=== PATIENT | male | born 1970 | race Caucasian/White ===

== ENCOUNTER → 2021-02-09 16:32 | Outpatient (CLI) | payer BC, SELFPAY ==
--- NOTE | ~2021-02-09 | XR_ITS ---
XR chest 2V DATE: 02/09/2021 16:51 INDICATION: Shortness of breath. No fever. TECHNIQUE: Upright 2 view examination COMPARISON: 07/08/2007 2 view chest FINDINGS: There is cardiomegaly, pulmonary vascular congestion and redistribution, prominence of the minor and greater fissures as well as some Leda B-lines, consistent with congestive heart failure a nd pulmonary interstitial and subpleural edema. No pulmonary consolidation. No pleural effusion. No pneumothorax. Included skeletal structures are unremarkable. IMPRESSION: Congestive heart failure with pulmonary interstitial and subpleural edema Reviewed, dictated and finalized at location A.
== END ==
PROVIDERS: PCP Family Medicine; Visit Provider Family Medicine
DX: R06.02 Shortness of breath (principal)
CPT/HCPCS: 71046

== ENCOUNTER 2022-07-06 15:48 | Emergency (ER) | payer BC, SELFPAY ==
[2022-07-06 16:04] VITALS: BP 114/84; PULSE 108; RESP 17; TEMP 38.8; O2SAT 97
[2022-07-06 16:49] LABS: Influenza A QL RT-PCR Positive (Negative); Influenza B QL RT-PCR Negative (Negative); RSV RNA, RT-PCR Negative (Negative); SARS-CoV-2 RNA PCR Negative
--- NOTE | 2022-07-06 18:13 | PC.NURSE ---
Pt to desk stating he wants to leave. Pt A&Ox4. Encouraged to return if symptoms do not improve.
== END 2022-07-06 18:13 | disposition left against medical advice (07) ==
PROVIDERS: Emergency Provider Emergency Medicine; PCP Family Medicine
DX: R50.9 Fever, unspecified (principal)
CPT/HCPCS: 87637; 99199

== ENCOUNTER 2025-03-31 13:20 | Outpatient (CLI) | payer BC, SELFPAY ==
--- OUTSIDE RECORDS SUMMARY | 2010-04-16 03:15 | XMS_ITS | Continuity of Care Document ---
Author Organization [facility] Address [address] [facility] [address] [place] [address] Phone Care Team Providers Care Freight Loader Name Role Phone Bledsoe OD, Jerry Unavailable Unavailable Procedures Procedure Date Office/outpatient Visit, Est Office/outpatient Visit, Est Advance Directives Directive Yes / No Effective Date File Name No Information Encounters Encounter Description Practice Location Reason(s) For Visit Diagnoses Date Provider Providers Copied on Encounter Office/outpat ient Visit, [facility] [place], [address] [place] [address] [address], [place], [place], [id number], tel:[phone] [facility] No Information Sep-1 0-201 0 Bledsoe OD Jerry. [address] , [address], [place], [place], [facility], [place]. tel:[phone] Office/outpat ient Visit, [facility] [place], [address] [place] [address] [address], [place], [place], [id number], tel:[phone] [facility] No Information Sep-0 8-201 0 Doisy Edward. [address], [address], [place], [place], [facility], . tel:[phone] Family History Family Member Type Diagnosis Age At Onset No Information Payers Payer name Insurance type Covered alliance party ID Authoriza tion(s) No Information Social History Type Description Quantity Date Captured Comments Sex Male Smoking Status No Information Chief Complaint And Reason For Visit No Information Reason For Referral Reason For Referral No Information History Of Present Illness Encounter Date Complaint History Of Prese nt Illness No Information Functional Status Date Functional Assessmen t No Information Instructions Date Instruction Additional Infor mation No Information Assessments Type Assessment Date No Information Patient Care Teams Name Effective Dates (start - stop) Status Members No Information
--- NOTE | ~2025-03-31 | XR_ITS ---
EXAMINATION: XR fl inj hip RT for MR/CT DATE: 03/31/2025 14:22 INDICATION: Right hip/groin and right lower quadrant pain TECHNIQUE: A time-out was performed to verify the patient's name, date of , and procedure to be performed. The procedure including the risks, benefits, and alternatives was discussed with the patient. Risks discussed included bleeding and infection. The patient understood the risks and agreed to proceed. The skin overlying the right hip joint was prepped and draped in usual sterile fashion. Anesthetic was administered with 1% lidocaine subcutaneously. A 22 G needle was advanced under fluoroscopic guidance into the joint. Injection of 1 mL of Omnipaque 240 confirmed intra-articular position of the needle. Subsequently, injectate consisting of . 12 mL of 2:1:1 mixture of sterile saline:Omnipaque 240:1% lidocaine mixed 200:1 with 529 mg/mL Multihance gadolinium contrast was instilled with intra-articular administration confirmed with intermittent fluoroscopy. The needle was removed and the entry site was cleaned and dressed. There were no immediate complications. Fluoroscopy exposure time was 0.2 minutes. The total number of images was 7. Total DAP was 0.814 Gycm^2. FINDINGS: Real-time fluoroscopy demonstrates the needle and contrast in the right hip joint. IMPRESSION: 1. Successful right hip joint injection of a dilute gadolinium contrast mixture for subsequent MRI arthrogram which will be dictated separately. Reviewed, dictated and finalized at location A.
--- NOTE | ~2025-03-31 | MR_ITS ---
EXAMINATION: MR hip RT w con DATE: 03/31/2025 14:59 INDICATION: Right leg injury. Right lower quadrant pain. TECHNIQUE: Magnetic resonance (MR) arthrogram of the right hip was performed following intra-articular gadolinium contrast injection and without intravenous contrast. Details of the hip joint injection have been dictated separately. Sequences included small field of view of the right hip with axial and sagittal T1-weighted FS SE and T2-weighted FS FSE and coronal T1-weighted SE and T2- weighted FS FSE. Additional T1-weighted FGRE images in a radial pattern oriented orthogonal to the acetabular rim were obtained for evaluation of the labrum. COMPARISON: None. FINDINGS: Bones/labrum/cartilage: 15 degrees lumbar levoscoliosis. Severe spondylosis with severe right-sided disc height loss with associated fibrofatty degenerative endplate changes. Moderate osteoarthritis at the right hip with scattered deep chondral ulceration with prominent at the superolateral right acetabulum and at the superomedial aspect of the femoral head where there is some underlying mild subarticular edema-like signal change. There is also prominent degeneration of the anterior to posterior superior right acetabular labrum which appears thickened with amorphous increased signal.. No fracture, avascular necrosis or pathologic marrow replacing process. There is suggestion of mild osteoarthritis at the contralateral left hip on the large [id number] images with subarticular cystlike change at the superolateral rim of the left acetabulum. Fluid: Physiologic amount fluid at the left hip. Contrast fills the right hip joint space with mild synovitis. No loose osteochondral bodies. Small left and moderate-sized right hydroceles in the scrotum. No free fluid in the pelvis, bursitis about the greater trochanters or other abnormal fluid collections. Soft tissues: Normal and symmetric muscle bulk and signal in the pelvis and visualized proximal thighs. The bilateral iliopsoas, gluteal and proximal hamstring tendons are normal. Prostatomegaly measuring 4.4 x 3.5 cm. Limited evaluation of visceral organs of the pelvis is unremarkable. No pathologically enlarged p elvic/inguinal lymphadenopathy. IMPRESSION: 1. Moderate right hip osteoarthritis with diffuse degeneration of the right acetabular labrum. 2. 15 degrees lumbar levoscoliosis with severe spondylosis at L4-L5. 3. Prostatomegaly. 4. Small left and moderate-sized right hydroceles. Reviewed, dictated and finalized at location A. IMPRESSION: 1. Moderate right hip osteoarthritis with diffuse degeneration of the right clay tabular labrum. 2. 15 degrees lumbar levoscoliosis with severe spondylosis at L4-L5. 3. Prostatomegaly. 4. Small left and moderate-sized right hydroceles.
--- OUTSIDE RECORDS SUMMARY | 2025-03-31 13:29 | XMS_ITS | Clinical Summary ---
Author Organization [facility] Address [address] [place] [address] Care Team Providers Care Provider Education Specialist Name Role Phone Joseluis Bhatti MD Primary Care Provider [phone] Allergies No known active allergies Medications carvediloL (COREG) 6.25 mg tablet Take 6.25 mg by mouth 2 (two) times a day 02/11/2021 Active furosemide (LASIX) 20 mg tablet Take 20 mg by mouth daily 02/17/2021 Active sacubitriL-valsa rtan (ENTRESTO) 49-51 mg tabletIndication s:chronic heart failure Take 1 tablet by mouth 2 (two) times a day 60 tablet 11 02/24/2021 Active Active Problems Problem Noted Date Diagnosed Date 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 Surgical History Surgery Date Site/Laterality Comments ANKLE SURGERY SHOULDER SURGERY Medical History Medical History Date Comments Cardiomyopathy Family History Medical History Relation Name Comments Heart disease Father Hyperlipidemia Father Hypertension Father Relation Name Status Comments Father (Age 70) Mother Alive Sister 1 Alive Sister 2 Alive Sister 3 Alive Social History Tobacco Use Types Packs/Day Years Used Date Smoking Tobacco: Never Smokeless Tobacco: Never Personal Safety Answer Date Recorded Getting School Help Needed Not on file 10/19 Sex and Gender Information Value Date Recorded Sex Assigned at Not on file 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 Gender Identity Not on file Sexual Orientation Not on file Obstetrics History Last Filed Vital Signs Vital Sign Reading Time Taken Comments Blood Pressure 112/72 02/24/2021 11:12 AM CDT Pulse 72 02/24/2021 11:12 AM CDT Temperature 36.7 C (98.1 F) 12/09/2020 3:52 PM CDT Respiratory Rate - - Oxygen Saturation 95% 02/24/2021 11:12 AM CDT Inhaled Oxygen Concentration - - Weight 82.1 kg (181 lb) 02/24/2021 11:12 AM CDT Height 177.8 cm (5' 10) 02/24/2021 11:12 AM CDT Body Mass Index 25.97 02/24/2021 11:12 AM CDT Plan of Treatment Not on file Insurance Agency [employer] [place] [employer] [place] Care Teams Provider Education Specialist Relationship Specialty Start Date End Date Joseluis Bhatti MD [address] [place] [id number] PCP - General Family Medicine 02/10/21
--- OUTSIDE RECORDS SUMMARY | 2025-03-31 13:29 | XMS_ITS | Clinical Summary ---
Author Organization [facility] Address [address] 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
--- OUTSIDE RECORDS SUMMARY | 2025-03-31 13:29 | XMS_ITS | Encounter Summary ---
Author Organization [facility] Address 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
== END 2025-03-31 13:21 | disposition home or self-care (01) ==
PROVIDERS: PCP Family Medicine; Visit Provider Physician Assistant Surgical
DX: M16.11 Unilateral primary osteoarthritis, right hip (principal); M24.151 Other articular cartilage disorders, right hip; M41.86 Other forms of scoliosis, lumbar region; M47.816 Spondylosis without myelopathy or radiculopathy, lumbar region; N40.0 Benign prostatic hyperplasia without lower urinary tract symptoms; N43.3 Hydrocele, unspecified
CPT/HCPCS: 20610; 73722; 77002; A9577; J2003; Q9966